=== PATIENT | female | born 1965 | race Caucasian/White ===

== ENCOUNTER → 2023-12-30 | Outpatient (REF) | payer OTHER ==
[~2023-12-30] MED LIST: CATAPRES0.1 MG PO; COZAAR100 MG PO; ESIDRIX25 MG PO; LISINOPRIL-HCT1 EAC1 PO; NORVASC10 MG PO
== END ==
LOC: MAMMO 12:35
PROVIDERS: ATTEND Family Medicine
DX: Z12.31 Encounter for screening mammogram for malignant neoplasm of breast (principal)
CPT/HCPCS: 77067